=== PATIENT | female | born 1995 | race African-American/Black ===

== ENCOUNTER 2022-04-22 03:33 | Emergency (ER) | payer OTHER ==
[2022-04-22] MEDS ORDERED: NORCO 5-325 TA1 EACH PO (04:02)
[2022-04-22] MEDS ORDERED: AMOX TR-K CLV1 EAC4 PO (04:02)
[2022-04-22] MEDS ORDERED: NAPROXEN500 MG PO (04:02)
== END 2022-04-22 04:18 | disposition home or self-care (01) ==
LOC: FER 03:33
DX: K04.7 Periapical abscess without sinus (principal); H61.22 Impacted cerumen, left ear; Z88.2 Allergy status to sulfonamides
CPT/HCPCS: J1885